=== PATIENT | female | born 1985 | race Caucasian/White ===

== ENCOUNTER 2017-11-05 19:05 | Emergency (ER) | payer OTHER ==
--- NOTE | 2017-11-05 19:56 | EDM.PDOC ---
ED HPI GENERAL MEDICAL PROBLEM - General Chief Complaint: Abdominal Pain Stated Complaint: ADB PAIN Time Seen by Provider: 11/05/17 19:10 Source of Information: Reports: Patient History Limitations: Reports: No Limitations - History of Present Illness INITIAL COMMENTS - FREE TEXT/NARRATIVE: 32 y.o.w.f came to the ed due a BM whenever she is eating any kind of food. "it goes right through" . Pt is currenly on a "[place]anji[place] diet" and lost 70 pounds in the last 6 months. Pt did not travel, is using the recommended diet as recommended by [employer]. No Nausea or vomiting or any other acute medical issues. BP 147/84 pulse 78 RR 16 Temp 36.9 O2 sat 98% on RA. Onset Date: 11/04/17 Onset Time: 06:00 Duration: Day(s):, Intermittent Location: Reports: Abdomen Severity: Mild Improves with: Reports: None Worsens with: Reports: None Context: Reports: Other (loose stool, no blood) - Related Data Allergies Allergy/AdvReac Type Severity Reaction Status Date / Time No Known Allergies Allergy Verified 11/05/17 19:17 Home Meds: Home Meds Gluc HCl/Csa/Tala Hy/Hyalur Ac [Glucosamine Chondroitin] 2 each PO DAILY [History] Metoprolol Tartrate 50 mg PO BID 11/05/17 [History] NIFEdipine [Adalat cc] 60 mg PO DAILY 11/05/17 [History] ED ROS GENERAL - Review of Systems Review Of Systems: See Below Constitutional: Reports: No Symptoms HEENT: Reports: No Symptoms Respiratory: Reports: No Symptoms Cardiovascular: Reports: No Symptoms Endocrine: Reports: No Symptoms GI/Abdominal: Reports: Abdominal Pain, Diarrhea : Reports: No Symptoms Musculoskeletal: Reports: No Symptoms Skin: Reports: No Symptoms Neurological: Reports: No Symptoms Psychiatric: Reports: No Symptoms Hematologic/Lymphatic: Reports: No Symptoms Immunologic: Reports: No Symptoms ED EXAM, GI/ABD - Physical Exam Exam: See Below Exam Limited By: No Limitations General Appearance: Alert, WD/WN, No Apparent Distress Eyes: Bilateral: Normal Appearance Ears: Normal External Exam Nose: Normal Inspection Throat/Mouth: Normal Inspection, Normal Lips Head: Atraumatic, Normocephalic Neck: Normal Inspection, Supple, Non-Tender Respiratory/Chest: No Respiratory Distress, Lungs Clear, Normal Breath Sounds, Chest Non-Tender Cardiovascular: Normal Peripheral Pulses, Regular Rate, Rhythm, No Edema GI/Abdominal Exam: Normal Bowel Sounds, Soft, Mass (pulsaing mass mid lower abdomen. ) (Female) Exam: Deferred Rectal (Female) Exam: Deferred Back Exam: Normal Inspection, Full Range of Motion Extremities: Normal Inspection, Normal Range of Motion, Non-Tender, No Pedal Edema, Normal Capillary Refill Neurological: Alert, Oriented, CN II-XII Intact, Normal Cognition, Normal Gait Psychiatric: Normal Affect, Normal Mood Skin Exam: Warm, Dry, Intact, Normal Color, No Rash Lymphatic: No Adenopathy Course - Vital Signs Text/Narrative:: 32 y.o.w.f came to the ed due a BM whenever she is eating any kind of food. "it goes right through" . Pt is currenly on a "[place] diet" and lost 70 pounds in the last 6 months. Pt did not travel, is using the recommended diet as recommended by [employer]. No Nausea or vomiting or any other acute medical issues. BP 147/84 pulse 78 RR 16 Temp 36.9 O2 sat 98% on RA. PE: WNWD W F NAD with a pulsating Mass mid lower abdomen Imaging: US abdomen: Normal aorta Labs: CBC and BMP were nl Plan: enteritis, weight loss, scheduled Tx: none Plan: D/C with instructions Last Recorded V/S: Last Vital Signs Temp 36.8 C 11/05/17 21:10 Pulse 74 11/05/17 21:10 Resp 16 11/05/17 21:10 BP 124/80 11/05/17 21:10 Pulse Ox 99 11/05/17 21:10 - Orders/Labs/Meds Orders: Active Orders 24 hr Category Date Time Status AAA Screen [US] Stat Exams 11/05/17 19:53 Ordered Labs: Laboratory Tests 11/05/17 11/05/17 11/05/17 Range/Units 19:55 19:55 20:05 WBC 9.4 (4.5-12.0) X10-3/uL RBC 4.96 (3.23-5.20) x10(6)uL Hgb 15.3 (11.5-15.5) g/dL Hct 45.0 (30.0-51.3) % MCV 90.8 (80-96) fL MCH 30.9 (27.7-33.6) pg MCHC 34.0 (32.2-35.4) g/dL RDW 12.2 (11.5-15.5) % Plt Count 293 (125-369) X10(3)uL MPV 7.9 (7.4-10.4) fL Neut % (Auto) 55.0 (46-82) % Lymph % (Auto) 36.2 (13-37) % Grand % (Auto) 5.9 (4-12) % Eos % (Auto) 3 (1.0-5.0) % Baso % (Auto) 0 (0-2) % Neut # (Auto) 5.2 (1.6-8.3) # Lymph # (Auto) 3.4 (0.6-5.0) # Grand # (Auto) 0.6 (0.0-1.3) # Eos # (Auto) 0.2 (0.0-0.8) # Baso # (Auto) 0.0 (0.0-0.2) # Sodium 143 (135-145) mmol/L Potassium 3.6 (3.5-5.3) mmol/L Chloride 106 (100-110) mmol/L Carbon Dioxide 26 (21-32) mmol/L BUN 18 (7-18) mg/dL Creatinine 0.7 (0.55-1.02) mg/dL Est Cr Clr Drug Dosing 112.20 mL/min Estimated GFR (MDRD) > 60 (>60) BUN/Creatinine Ratio 25.7 H (9-20) Glucose 103 (80-116) mg/dL Calcium 9.6 (8.6-10.2) mg/dL Urine Color Yellow (YELLOW) Urine Appearance Clear (CLEAR) Urine pH 5.0 (5.0-6.5) Ur Specific [place] 1.020 (1.010-1.025) Urine Protein Negative (NEGATIVE) mg/dL Urine Glucose (UA) Normal (NEGATIVE) mg/dL Urine Ketones Negative (NEGATIVE) mg/dL Urine Occult Blood Negative (NEGATIVE) Urine Nitrite Negative (NEGATIVE) Urine Bilirubin Negative (NEGATIVE) Urine Urobilinogen Normal (NEGATIVE) mg/dL Ur Leukocyte Esterase Negative (NEGATIVE) Urine RBC 0-5 (0) Urine WBC 0-5 (0) Ur Squamous Epith Cells Few H (NS,R,O) Urine Bacteria Few H (NS) Urine HCG, Qual (NEGATIVE) 11/05/17 Range/Units 20:05 WBC (4.5-12.0) X10-3/uL RBC (3.23-5.20) x10(6)uL Hgb (11.5-15.5) g/dL Hct (30.0-51.3) % MCV (80-96) fL MCH (27.7-33.6) pg MCHC (32.2-35.4) g/dL RDW (11.5-15.5) % Plt Count (125-369) X10(3)uL MPV (7.4-10.4) fL Neut % (Auto) (46-82) % Lymph % (Auto) (13-37) % Grand % (Auto) (4-12) % Eos % (Auto) (1.0-5.0) % Baso % (Auto) (0-2) % Neut # (Auto) (1.6-8.3) # Lymph # (Auto) (0.6-5.0) # Grand # (Auto) (0.0-1.3) # Eos # (Auto) (0.0-0.8) # Baso # (Auto) (0.0-0.2) # Sodium (135-145) mmol/L Potassium (3.5-5.3) mmol/L Chloride (100-110) mmol/L Carbon Dioxide (21-32) mmol/L BUN (7-18) mg/dL Creatinine (0.55-1.02) mg/dL Est Cr Clr Drug Dosing mL/min Estimated GFR (MDRD) (>60) BUN/Creatinine Ratio (9-20) Glucose (80-116) mg/dL Calcium (8.6-10.2) mg/dL Urine Color (YELLOW) Urine Appearance (CLEAR) Urine pH (5.0-6.5) Ur Specific [place] (1.010-1.025) Urine Protein (NEGATIVE) mg/dL Urine Glucose (UA) (NEGATIVE) mg/dL Urine Ketones (NEGATIVE) mg/dL Urine Occult Blood (NEGATIVE) Urine Nitrite (NEGATIVE) Urine Bilirubin (NEGATIVE) Urine Urobilinogen (NEGATIVE) mg/dL Ur Leukocyte Esterase (NEGATIVE) Urine RBC (0) Urine WBC (0) Ur Squamous Epith Cells (NS,R,O) Urine Bacteria (NS) Urine HCG, Qual Negative (NEGATIVE) Departure - Departure Time of Disposition: 21:06 Disposition: Home, Self-Care 01 Condition: Good Clinical Impression: Diarrhea, Dehydration - Discharge Information Referrals: PCP,Not In Area [Primary Care Provider] - Forms: ED Department Discharge Additional Instructions: Please increase waterintake, please take Immodium for severe diarrhea, please come back if your symptoms did not subside in 1 week. Please come back if your symptoms get worse acutely - My Orders Last 24 Hours: My Active Orders 11/05/17 19:53 AAA Screen [US] Stat - Assessment/Plan Last 24 Hours: My Active Orders 11/05/17 19:53 AAA Screen [US] Stat
--- NOTE | 2017-11-06 11:22 | US ---
INDICATION: Pulsating mass lower abdomen. ULTRASOUND AAA SCREEN: Multiple ultrasonic images were obtained and revealed the abdominal aorta to measure 1.8, 1.5, and 1.3 cm in the proximal, mid, and distal aorta. The common iliac arteries were normal in caliber additionally. No evidence of an abdominal aortic aneurysm was identified. IMPRESSION: No evidence of AAA. Palpable abnormality most likely is the abdominal aorta - normal caliber but placed close to the abdominal wall due to hyperlordosis. MTDD
== END 2017-11-05 21:17 | disposition home or self-care (01) ==
LOC: FB.ED 19:05
DX: R19.7 Diarrhea, unspecified (principal); E86.0 Dehydration; Z79.899 Other long term (current) drug therapy
CPT/HCPCS: 36415; 80048; 81001; 81025; 85025; 99284